=== PATIENT | female | born 1975 | race Caucasian/White ===

== ENCOUNTER → 2020-04-09 | Outpatient (CLI) | payer BC ==
[2015-05-08 14:53] VITALS: BP 116/80
[~2020-04-09] MED LIST: BENZ100C PO; BUPR100T6 PO; FLUO10CA13 PO; GUAI600T47 PO; HYDR-3165 PO; PRED50TA PO; PROZOSIN
--- NOTE | 2020-04-18 09:21 | RAD ---
DATE: 04/09/2020 12:27 PM EXAM: DIGITAL SCREEN BILAT W/CAD HISTORY: Screening COMPARISON: Bilateral MLO views of 01/09/2018 Bilateral full field craniocaudal and mediolateral oblique images were obtained using digital technique. This study was interpreted with the benefit of Computerized Aided Detection (CAD). FINDINGS: Breast Density: SCATTERED The breast parenchyma shows scattered fibroglandular densities. Breast parenchyma level B Negative left mammogram. Asymmetry in the lateral right breast middle third 0.7 cm from the nipple needs additional imaging with spot compression and full-field lateral view with possible targeted ultrasound. IMPRESSION: Right breast asymmetry, findings for which additional imaging is advised. BI-RADS CATEGORY: 0 INCOMPLETE: NEEDS ADDITIONAL IMAGING EVALUATION AND/OR PRIOR MAMMOGRAMS FOR COMPARISON. RECOMMENDED FOLLOW-UP: ADD ADDITIONAL IMAGING The patient will be contacted to return for additional imaging and a supplemental report will follow. PQRS compliance statement: Patient information was entered into a reminder system with a target due date for the next mammogram. Mammography is a sensitive method for finding small breast cancers, but it does not detect them all and is not a substitute for careful clinical examination. A negative mammogram does not negate a clinically suspicious finding and should not result in delay in biopsying a clinically suspicious abnormality. "Our facility is accredited by the [employer] Mammography [employer]."
== END ==
LOC: MAMMO 11:28
PROVIDERS: ATTEND Internal Medicine
DX: Z12.31 Encounter for screening mammogram for malignant neoplasm of breast (principal); N64.89 Other specified disorders of breast
CPT/HCPCS: 77067

== ENCOUNTER → 2020-05-03 | Outpatient (CLI) | payer BC ==
[2015-05-08 14:53] VITALS: BP 116/80
--- NOTE | 2020-05-03 15:35 | RAD ---
Examination: Right digital diagnostic mammogram. INDICATION: 44-year-old woman recalled from screening for asymmetry in the lateral right breast. COMPARISON: 04/09/2020 TECHNIQUE: MLO, LM full field views of the right breast were obtained in addition to CC spot compress ion views and focused laterally. FINDINGS: Scattered fibroglandular densities. The asymmetry did not persist on additional mammographic views. No suspicious mass, calcification or architectural distortion. IMPRESSION: Negative right diagnostic mammogram. No evidence of malignancy BI-RADS Category 1 Negative Recommend return to routine screening next due in one year. Electronically signed by: Maritza Butler MD (05/03/2020 3:32 PM) [id number]
== END ==
LOC: MAMMO 14:14
PROVIDERS: ATTEND Internal Medicine
DX: R92.2 Inconclusive mammogram (principal)
CPT/HCPCS: 77065